=== PATIENT | female | born 1970 | race Caucasian/White ===

== ENCOUNTER 2019-12-04 03:27 | Emergency (ER) | payer OTHER ==
[~2019-12-04] VITALS: Ht 157.5 cm; Wt 74.0 kg
--- NOTE | 2019-12-04 04:02 | PHYS DOC ---
Past History Past Medical History: No Pertinent History Past Surgical History: Cholecystectomy, , Other Alcohol Use: None Drug Use: None General Adult EDM: Chief Complaint: Neck Pain HPI: HPI: " I ve had this before... but never this bad.... it started 4 day s ago.. it was after a hard sleep.. and I woke up with this severe neck spasms... it has not gotten better.. it gotten worse.. I ever called my Runner Man dad .. before I came in.. I tried high dose Ibuprofen.. 800.mg and it has not touched the pain.." Patient is a 49 year old female who presents with above hx and complaints severe torticollis. Pt . Denies any specific trauma. Pt just reports she woke up with severe pain approximately 4 days ago. Since that time she has had severe torticollis and muscle spasms in neck. Has limited range of motion due to pain. Has had feelings of electric shock down into her shoulders. Patient has had 1 previous episode of neck stiffness which resolved with ibuprofen. No history of travel. No specific ill contacts. No history of fever or chills. No history of IV drug use. No history of problems with defecation or urination. The patient has had little limitation in upper extremities because of pain in her neck. The patient normally follows at [facility]. Review of Systems: Review of Systems: Constitutional: Denies fever or chills Eyes: Denies change in visual acuity HENT: Denies nasal congestion or sore throat. Complains of severe neck spasm and pain Respiratory: Denies cough or shortness of breath Cardiovascular: Denies chest pain or edema GI: Denies abdominal pain, nausea, vomiting, bloody stools or diarrhea : Denies dysuria Musculoskeletal: Denies back pain or joint pain Integument: Denies rash Neurologic: Denies headache, focal weakness or sensory changes Endocrine: Denies polyuria or polydipsia Lymphatic: Denies swollen glands Psychiatric: Denies depression or anxiety Heart Score: Risk Factors: Risk Factors: DM, Current or recent (<one month) smoker, HTN, HLP, family history of CAD, obesity. Risk Scores: Score 0 - 3: 2.5% MACE over next 6 weeks - Discharge Home Score 4 - 6: 20.3% MACE over next 6 weeks - Admit for Clinical Observation Score 7 - 10: 72.7% MACE over next 6 weeks - Early Invasive Strategies Family History: Family History: Noncontributory Current Medications: Current Meds: See nursing for home meds Allergies: Allergies: Allergies Coded Allergies Type Severity Reaction Last Updated Verified No Known Drug Allergies 01/08/14 No Physical Exam: PE: Constitutional: in acute distress, non-toxic appearance. [] HENT: Normocephalic, atraumatic, bilateral external ears normal, oropharynx moist, no oral exudates, nose normal. [] Eyes: PERRLA, EOMI, conjunctiva normal, no discharge. [] Neck: Admitted range of motion due to neck spasm and pain, tenderness paracervical, , no stridor. [] No adenopathy. Cardiovascular:Heart rate regular rhythm, no murmur [] Lungs & Thorax: Bilateral breath sounds equal apex auscultation [] Abdomen: Bowel sounds normal, soft, no tenderness, no masses, no pulsatile mass es. [] Skin: Warm, dry, no erythema, no rash. [] Back: No tenderness, no CVA tenderness. Trapezius spasms Extremities: No tenderness, no cyanosis, no clubbing, ROM intact, no edema. DTRs are +2 patella and brachial. [employer] Hot Mix equal. Neurologic: Alert and oriented X 3, normal motor function, normal sensory function, no focal deficits noted. [] Psychologic: Affect anxious, judgement normal, mood normal. [] EKG: EKG: [] Radiology/Procedures: Radiology/Procedures: [][place] [address] IMAGING REPORT Signed PATIENT: LLUVIA VELAACCOUNT: [id number] : 1970 LOCATION: ER AGE: 49 SEX: F EXAM STATUS: REG ER ORD. PHYSICIAN: MIGUE REYES MD REASON: severe neck pain, torcolis, NO KNOWN INJURY, PAIN X 1 WEEK PROCEDURE: CT CERVICAL SPINE WO CONTRAST EXAM: CT cervical spine without contrast INDICATION: Severe neck pain for one week. Torticollis. No known injury. COMPARISON: None TECHNIQUE: Axial CT imaging through the cervical spine without contrast. Sagittal and coronal reformats were obtained. One or more of the following individualized dose reduction techniques were utilized for this examination: 1. Automated exposure control 2. Adjustment of the mA and/or kV according to patient size 3. Use of iterative reconstruction technique. FINDINGS: No acute fracture. Alignment is normal. The craniocervical junction and atlantoaxial interval are maintained. There are calcifications at the tip of the dens. Disc spaces and facet joints are normal. There is a small central disc extrusion at C6-C7 extending slightly cranial and caudal to the disc space. This indents the ventral canal. No foraminal narrowing. Prevertebral soft tissue is normal. IMPRESSION: 1. No acute osseous abnormality. 2. Small central disc extrusion at C6-C7. MRI could be obtained to further evaluate. Electronically signed by: Shahnaz Lund MD (12/04/2019 4:25 AM) [id number] DICTATED AND SIGNED BY: SHAHNAZ LUND MD DATE: 12/04/19 0425 CC: MATIAS CARROLL MD; MIGUE REYES MD ~ Course & Med Decision Making: Course & Med Decision Making Pertinent Labs and Imaging studies reviewed. (See chart for details). Patient is ice packs as needed. Patient have gentle massage. Patient to take Tylenol and ibuprofen for pain. Patient may take Vicoprofen up to 4 times a day for marked pain. Patient take Flexeril 10 mg up to 3 times a day for marked spasms. Patient to follow-up with primary care. Patient consider referral for a MRI to further evaluate the disc protrusion at C6-7. Patient issued a copy of CT results for follow-up. Patient cannot use a pillow but use a towel roll at night when she sleeps to support her neck. Impression: 1. Torticollis 2. Central disc protrusion at C6-7 3. Cervical neuropathy [] Dragon Disclaimer: Dragon Disclaimer: This electronic medical record was generated, in whole or in part, using a voice recognition dictation system. Departure Departure: Disposition: 01 DC HOME SELF CARE/HOMELESS Condition: STABLE Referrals: MATIAS CARROLL MD (PCP) Scripts Acetaminophen (ACETAMINOPHEN) 500 Mg Tablet 1000 MG PO qidp for pain, fever, #120 TAB Prov: MIGUE REYES MD 12/04/19 Ibuprofen (IBUPROFEN) 400 Mg Tablet 400 MG PO QIDPRN PRN for PAIN, #120 TAB Prov: MIGUE REYES MD 12/04/19 Cyclobenzaprine Hcl (CYCLOBENZAPRINE HCL) 10 Mg Tablet 10 MG PO TID PRN PRN for spasms, #30 TAB Prov: MIGUE REYES MD 12/04/19 Hydrocodone/Ibuprofen (HYDROCODONE-IBUPROFEN 7.5-200 ) 1 Each Tablet 1 TAB PO PRN Q6HRS PRN for PAIN, #30 TAB 0 Refills Prov: MIGUE REYES MD 12/04/19 Dragon Disclaimer This chart was dictated in whole or in part using Voice Recognition software in a busy, high-work load, and often noisy Emergency Department environment. It may contain unintended and wholly unrecognized errors or omissions. MIGUE REYES MD Dec 04, 2019 04:02
--- NOTE | 2019-12-04 04:28 | RAD ---
EXAM: CT cervical spine without contrast INDICATION: Severe neck pain for one week. Torticollis. No known injury. COMPARISON: None TECHNIQUE: Axial CT imaging through the cervical spine without contrast. Sagittal and coronal reformats were obtained. One or more of the following individualized dose reduction techniques were utilized for this examination: 1. Automated exposure control 2. Adjustment of the mA and/or kV according to patient size 3. Use of iterative reconstruction technique. FINDINGS: No acute fracture. Alignment is normal. The craniocervical junction and atlantoaxial interval are maintained. There are calcifications at the tip of the dens. Disc spaces and facet joints are normal. There is a small central disc extrusion at C6-C7 extending slightly cranial and caudal to the disc space. This indents the ventral canal. No foraminal narrowing. Prevertebral soft tissue is normal. IMPRESSION: 1. No acute osseous abnormality. 2. Small central disc extrusion at C6-C7. MRI could be obtained to further evaluate. Electronically signed by: Shahnaz Lund MD (12/04/2019 4:25 AM) [id number]
[2019-12-04] MEDS ORDERED: KETOROLAC 60 MG/2 ML VIAL. IM ONE (04:30)
[2019-12-04] MEDS ORDERED: ORPHENADRINE CITRATE 60 MG/2 ML VIAL. IM ONE (04:30)
[2019-12-04] MEDS ORDERED: MORPHINE SULFATE 10 MG/ML SYRINGE. SQ ONE (04:30)
[2019-12-04] MEDS ORDERED: ACET500T68 PO (05:02)
[2019-12-04] MEDS ORDERED: IBUP400T18 PO (05:02)
[2019-12-04] MEDS ORDERED: CYCL-331 PO (05:02)
[2019-12-04] MEDS ORDERED: HYDR-1179 PO (05:02)
[2019-12-04 05:30] VITALS: BP 156/96
== END 2019-12-04 05:30 | disposition home or self-care (01) ==
LOC: ER 03:27
DX: M43.6 Torticollis (principal); M50.223 Other cervical disc displacement at C6-C7 level
CPT/HCPCS: 72125; 81025; 96372; 99284; J1885; J2270; J2360

== ENCOUNTER 2019-12-05 16:38 | Emergency (ER) | payer OTHER ==
[~2019-12-05] VITALS: Ht 157.5 cm; Wt 75.0 kg
[~2019-12-05 16:38] MED LIST: ACET500T68 PO; CYCL-331 PO; HYDR-1179 PO; IBUP400T18 PO
[2019-12-05 17:52] VITALS: BP 159/55
--- NOTE | 2019-12-05 18:29 | PHYS DOC ---
Past History Past Medical History: No Pertinent History Past Surgical History: Cholecystectomy, Alcohol Use: Occasionally Drug Use: None General Adult EDM: Chief Complaint: Neck Pain HPI: HPI: Patient is a 49-year-old female presenting with uncontrolled upper cervical pain. Has been seen and had CT done 1 day ago. She states 1 week ago she pushed her head against the pillow she is sleeping a turned over and felt some pain. Later the pain was exacerbated by driving the area with multiple turns and turning her head. Says the pain is been gradually worsening since initial pain a week ago. Denies any remote history of head or neck injury. Has arthritis in various joints but is not had that long before. Denies any upper extremity weakness or paresthesias. Pain does not radiate around neck. States that he feels the pain is on the inside of her neck. Review of Systems: Review of Systems: Constitutional: Denies fever or chills Eyes: Denies change in visual acuity HENT: Denies nasal congestion or sore throat Respiratory: Denies cough or shortness of breath Cardiovascular: Denies chest pain or edema GI: Denies abdominal pain, nausea, vomiting, bloody stools or diarrhea : Denies dysuria Musculoskeletal: Denies back pain or joint pain Integument: Denies rash Neurologic: Denies headache, focal weakness or sensory changes Endocrine: Denies polyuria or polydipsia Lymphatic: Denies swollen glands Psychiatric: Denies depression or anxiety Heart Score: Risk Factors: Risk Factors: DM, Current or recent (<one month) smoker, HTN, HLP, family history of CAD, obesity. Risk Scores: Score 0 - 3: 2.5% MACE over next 6 weeks - Discharge Home Score 4 - 6: 20.3% MACE over next 6 weeks - Admit for Clinical Observation Score 7 - 10: 72.7% MACE over next 6 weeks - Early Invasive Strategies Allergies: Allergies: Allergies Coded Allergies Type Severity Reaction Last Updated Verified No Known Drug Allergies 01/08/14 No Physical Exam: PE: Constitutional: Well developed, well nourished, no acute distress, non-toxic appearance. [] HENT: Normocephalic, atraumatic, bilateral external ears normal, oropharynx moist, no oral exudates, nose normal. [] Eyes: PERRLA, EOMI, conjunctiva normal, no discharge. [] Neck: Normal range of motion, no tenderness, supple, no stridor. [] Cardiovascular:Heart rate regular rhythm, no murmur [] Lungs & Thorax: Bilateral breath sounds clear to auscultation [] Abdomen: Bowel sounds normal, soft, no tenderness, no masses, no pulsatile mas ses. [] Skin: Warm, dry, no erythema, no rash. [] Back: No tenderness, no CVA tenderness. [] Extremities: No tenderness, no cyanosis, no clubbing, ROM intact, no edema. [] Neurologic: Alert and oriented X 3, normal motor function, normal sensory function, no focal deficits noted. [] Psychologic: Affect normal, judgement normal, mood normal. [] Current Patient Data: Vital Signs: Vital Signs Date Time Temp Pulse Resp B/P (MAP) Pulse Ox O2 Delivery O2 Flow Rate FiO2 12/05/19 17:52 97.8 71 16 159/55 (89) 100 EKG: EKG: [] Radiology/Procedures: Radiology/Procedures: [] Impressions: Discussed with Dr. Brambila's PA, he was able to review the images. Recommend MRI and pain control as an outpatient versus inpatient admission for pain control and MRI tomorrow. Patient agrees to admission for pain management and MRI tomorrow. Course & Med Decision Making: Course & Med Decision Making Pertinent Labs and Imaging studies reviewed. (See chart for details) [] Dragon Disclaimer: Dragon Disclaimer: This electronic medical record was generated, in whole or in part, using a voice recognition dictation system. Departure Departure: Impression: Primary Impression: Neck pain without injury Disposition: 05 DC/TRF OTHER TYPE INSTITUTI Condition: STABLE Referrals: MATIAS CARROLL MD (PCP) AMARJIT ROUSSEAU MD Dec 05, 2019 18:29
[2019-12-05 19:36] LABS: BASO # 0.1 x10^3/uL (0.0-0.2); BASO % 1 % (0-3); EOS # 0.2 x10^3/uL (0.0-0.7); EOS % 2 % (0-3); HEMOGLOBIN 12.5 g/dL (12.0-15.5); LYMPH # 1.8 x10^3/uL (1.0-4.8); LYMPH % 22 % (24-48); MEAN CORPUSCULAR HEMOGLOBIN 30 pg (25-35); MEAN CORPUSCULAR HGB CONC 33 g/dL (31-37); MEAN CORPUSCULAR VOLUME 92 fL (79-100); MONO # 0.5 x10^3/uL (0.0-1.1); MONO % 6 % (0-9); NEUT # 5.7 x10^3uL (1.8-7.7); NEUT % 69 % (31-73); PLATELET COUNT 227 x10^3/uL (140-400); RED BLOOD COUNT 4.13 x10^6/uL (3.50-5.40); RED CELL DISTRIBUTION WIDTH 13.8 % (11.5-14.5); WHITE BLOOD COUNT 8.2 x10^3/uL (4.0-11.0)
[2019-12-05 19:47] LABS: ALBUMIN 3.8 g/dL (3.4-5.0); ALBUMIN/GLOBULIN RATIO 0.9 (1.0-1.7); C REACTIVE PROTEIN 22.6 mg/L (0-3.3); CALCIUM 8.6 mg/dL (8.5-10.1); CREATININE 0.8 mg/dL (0.6-1.0); GFR 76.9; POTASSIUM 3.8 mmol/L (3.5-5.1); TOTAL BILIRUBIN 0.6 mg/dL (0.2-1.0)
[2019-12-05] MEDS ORDERED: HYDROmorphone PF 1 MG/ML DISP.SYRIN IVP ONE (20:45)
== END 2019-12-05 21:09 | disposition short-term general hospital (02) ==
LOC: ER 16:38
DX: M54.2 Cervicalgia (principal); M19.90 Unspecified osteoarthritis, unspecified site
CPT/HCPCS: 36415; 80053; 85025; 86140; 96374; 96375; 99285; J1170; J3010